=== PATIENT | female | born 1955 | race Hispanic/Latino ===

== ENCOUNTER 2018-04-28 13:15 | Inpatient (IN) | payer SELFPAY ==
[2018-04-28 14:15] LABS: Absolute Lymphocytes (CBC) 1.8 K/uL (0.7-4.9); Absolute Monocytes 0.9 K/uL (0.1-1.3); Absolute Neutrophil 7.1 K/uL (1.8-8.0); Basophils % 0.4 % (0-1.3); Eosinophils % 2.9 % (0-4.4); Hematocrit 42.6 % (36.0-45.0); Lymphocytes % 17.6 % (15.3-44.8); MPV 9.2 fL (7.6-11.3); Monocytes % 8.7 % (3.3-12.3); RBC Red Blood Cell Count 4.76 M/uL (3.86-4.86)
[2018-04-28 14:18] LABS: Protime INR 3.36
[2018-04-28 14:33] LABS: CKMB Creatine Kinase MB < 1.0 ng/mL (0.3-3.6); Creatine Phosphokinase 83 U/L (26-192); Lipase 111 U/L (73-393)
[2018-04-28] MEDS ORDERED: LEVALBUTEROL 1.25 MG/3 ML NEB ONE (14:43)
[2018-04-28] MEDS ORDERED: predniSONE 20 MG TAB ONE (14:44)
[2018-04-28] MEDS ORDERED: NA CHLORIDE 0.9% 1,000 ML ONE (14:44)
[2018-04-28 15:06] LABS: ALT/SGPT 23 U/L (12-78); AST/SGOT 24 U/L (15-37); Albumin 3.5 g/dL (3.4-5.0); Alkaline Phosphatase 138 U/L (45-117); BUN Blood Urea Nitrogen 10 mg/dL (7-18); Bicarbonate 27 mmol/L (21-32); Bilirubin Direct 0.2 mg/dL (0-0.2); Bilirubin Total 0.4 mg/dL (0.2-1.0); Glucose Level 173 mg/dL (74-106); Magnesium 1.9 mg/dL (1.8-2.4); NT PRO-BNP 1034 pg/mL (<125); Potassium 3.5 mmol/L (3.5-5.1); Sodium Level 142 mmol/L (136-145); Troponin (Emerg Dept Use Only) < 0.02 ng/mL (0.0-0.045)
--- NOTE | 2018-04-28 15:18 | RAD REPORT ---
EXAM DESCRIPTION: RAD - Chest Single View - 04/28/2018 2:46 pm CLINICAL HISTORY: Chest pain, shortness of breath COMPARISON: September 2013 TECHNIQUE: AP portable chest image was obtained 1423 hours . FINDINGS: No peripheral consolidation. Patient does have an increase in interstitial opacification a nd some scattered alveolar opacities present. Cardiomegaly is present increased slightly over compari son. Vasculature in the upper lobes increased slightly as well. No measurable pleural effusion and no pneumothorax. No acute bony abnormality seen. No acute aortic findings suspected. IMPRESSION: Heart, vasculature and lung markings have all increased over comparison. Findings sugges t failure/ volume overload. No focal consolidation to suspect bacterial pneumonia.
[2018-04-28 16:41] LABS: Urine Bacteria 20-50 /HPF (<20); Urine Culture Reflex Order REFLEXED; Urine RBC NONE SEEN /HPF (NONE SEEN)
[2018-04-28 16:43] LABS: Urine Blood TRACE (NEG); Urine Glucose NEGATIVE (NEG); Urine Protein NEGATIVE (NEG); Urine Specific Gravity 1.015 (1.005-1.030)
--- NOTE | 2018-04-28 16:52 | RAD REPORT ---
EXAM DESCRIPTION: CT - Chest For Pe Angio - 04/28/2018 4:30 pm CLINICAL HISTORY: Chest pain COMPARISON: None. TECHNIQUE: Dynamically enhanced axial 3 mm thick images of the chest were obtained during administra tion of <100> mL Isovue 370 IV contrast. Coronal and oblique reconstruction images were generated and reviewed. Exam utilizes a protocol for optimal evaluation of pulmonary arterial tree. Maximum intensity projections 3D imaging was utilized All CT scans are performed using dose optimization technique as appropriate and may include automated exposure control or mA/KV adjustment according to patient size. FINDINGS: A pulmonary embolus is not seen. A thoracic aortic aneurysm is not noted. A pleural effusion is not seen. A pericardial effusion is not seen. A lung consolidation is not present. The heart is enlarged IMPRESSION: Negative for a pulmonary embolism.
--- NOTE | 2018-04-28 17:23 | EKG ---
Test Date: 2018-04-28 Test Time: 13:27:06 County Demonstrator: RADHA MEASUREMENT RESULTS: Intervals: Rate: 145 ME: QRSD: 76 QT: 314 QTc: 487 Badger: P: ME: QRS: 50 T: 238 INTERPRETIVE STATEMENTS: Atrial fibrillation with rapid ventricular response with premature ventricular or aberrantly conducted complexes ST & T wave abnormality, consider inferior ischemia Abnormal ECG No previous ECG available for comparison Electronically Signed On 04-28-18 17:22:46 GRAPE CUTTER by Michael Mondragon
--- NOTE | 2018-04-28 17:32 | ER ---
Nurse's Notes [facility] Name: Andrew Ford Age: 62 yrs Sex: Female : 1955 Arrival Date: 04/28/2018 Time: 13:18 Bed 17 Private MD: Diagnosis: A-fib w/ RVR, chest pain, cough, congestion Presentation: 04/28 13:38 Presenting complaint: Nonprodctive cough, pain with cough, SOB, and substernal chest hb pain x 2 days. Transition of care: patient was not received from another setting of care. Onset of symptoms was April 27, 2018. Risk Assessment: Do you want to hurt yourself or someone else? Patient reports no desire to harm self or others. Care prior to arrival: None. 13:38 Method Of Arrival: Ambulatory hb 13:38 Acuity: GISSELLE 2 hb Triage Assessment: 13:45 General: Appears in no apparent distress. comfortable, obese, Behavior is calm, bp cooperative, appropriate for age. Pain: Complains of pain in chest. Historical: - Allergies: 13:40 No Known Allergies; hb - PMHx: 13:40 Hypertension; hb - PSHx: 13:40 Tubal ligation; hb - Immunization history:: Adult Immunizations up to date. - Social history:: Smoking status: Patient/guardian denies using tobacco. - Ebola Screening: : No symptoms or risks identified at this time. Screenin:00 Abuse screen: Denies threats or abuse. Denies injuries from another. Nutritional bp screening: No deficits noted. Tuberculosis screening: No symptoms or risk factors identified. Fall Risk None identified. Assessment: 14:00 General: Appears in no apparent distress. comfortable, obese, Behavior is cooperative, bp appropriate for age, anxious. Pain: Complains of pain in chest Pain does not radiate. Pain began 2-3 days ago. Neuro: Level of Consciousness is awake, alert, obeys commands, Oriented to person, place, time, situation, Appropriate for age. Cardiovascular: Rhythm is sinus tachycardia. Respiratory: Airway is patent Respiratory effort is even, unlabored, Respiratory pattern is regular, symmetrical. GI: No signs and/or symptoms were reported involving the gastrointestinal system. : No signs and/or symptoms were reported regarding the genitourinary system. EENT: No deficits noted. Derm: No deficits noted. Musculoskeletal: Circulation, motion, and sensation intact. Range of motion: intact in all extremities. 16:17 Reassessment: PT TO CT WITH PLATER APPRENTICE. bp 17:30 Reassessment: ADMIT MD AT B/S. bp 19:15 Reassessment: Patient appears in no apparent distress at this time. Patient and/or ed1 family updated on plan of care and expected duration. Pain level reassessed. Patient is alert, oriented x 3, equal unlabored respirations, skin warm/dry/pink. Pt informed of room assignment. Awaiting to call report to 4th floor. Respiratory: Airway is patent Respiratory effort is even, unlabored, Respiratory pattern is regular, symmetrical. 20:23 Reassessment: Patient appears in no apparent distress at this time. Patient and/or ed1 family updated on plan of care and expected duration. Pain level reassessed. Patient is alert, oriented x 3, equal unlabored respirations, skin warm/dry/pink. Awaiting admission packet. Vital Signs: 13:38 BP 125 / 88; Pulse 148; Resp 20; Temp 99.4(TE); Pulse Ox 100% on R/A; Pain 5/10; hb 14:48 BP 121 / 77; Pulse 122; Resp 21; Pulse Ox 94% ; bp 16:16 BP 137 / 84; Pulse 138; Resp 24; Pulse Ox 95% ; bp 17:00 BP 99 / 82; Pulse 135; Resp 27; Pulse Ox 92% ; bp 17:30 BP 123 / 75; Pulse 144; Resp 28; Pulse Ox 89% ; bp 18:53 BP 112 / 97; Pulse 126; Resp 25; Pulse Ox 93% ; bp 19:48 BP 124 / 57; Pulse 127; Resp 24; Temp 98.9(O); Pulse Ox 93% on 2 lpm NC; Pain 2/10; ed1 ED Course: 13:18 Patient arrived in ED. rg4 13:40 Triage completed. hb 13:40 Rodo Stafford MD is Attending Physician. kdr 13:40 Arm band placed on. hb 13:42 Juan Morocho, JERMAN is Primary Nurse. bp 13:59 Inserted saline lock: 18 gauge in right antecubital area, using aseptic technique. 5 Blood collected. 14:14 Initial lab(s) drawn, by sd, sent to lab. First set of blood cultures drawn by sd, mh5 Second set of blood cultures drawn by sd. 14:47 XRAY Chest (1 view) In Process Unspecified. EDMS 15:05 Lactate Sent. 5 15:05 Procalcitonin Sent. 5 15:06 Blood Culture Adult (2) Sent. 5 15:06 Basic Metabolic Panel Sent. 5 15:06 LFT's Sent. 5 15:06 Troponin (emerg Dept Use Only) Sent. 5 15:07 Patient has correct armband on for positive identification. Placed in gown. Bed in low mh5 position. Call light in reach. Side rails up X 1. Adult w/ patient. Warm blanket given. cafeteria monitor on. Pulse ox on. NIBP on. 16:[address] via wheelchair. em2 16:28 CT completed. Patient tolerated procedure well. Patient moved back from CT. em2 16:30 CT Chest For PE Angio In Process Unspecified. EDMS 17:26 Ciro Hair DO is Hospitalizing Provider. kdr 18:14 Flu Sent. 5 18:14 Repeat lab(s) drawn. sent to lab. 5 18:15 Flu and/or RSV swab sent to lab. 5 20:23 No provider procedures requiring assistance completed. Patient admitted, IV remains in ed1 place. intact, No redness/swelling at site. Oxygen administration via nasal cannula \T\ 2L/min. Administered Medications: 14:00 Drug: Xopenex (3) 1.25 mg Route: Inhalation; bp 14:00 Drug: predniSONE 60 mg Route: PO; bp 17:39 Follow up: Response: No adverse reaction bp 14:00 Drug: NS 0.9% 1000 ml Route: IV; Rate: 1 bolus; Site: right antecubital; bp 17:40 Drug: Lopressor 5 mg Route: IVP; Site: right antecubital; bp 17:45 Drug: Lopressor 5 mg Route: IVP; Site: right antecubital; bp 17:50 Drug: Lopressor 5 mg Route: IVP; Site: right antecubital; bp 18:54 Follow up: Response: No change in condition bp Outcome: 17:31 Decision to Hospitalize by Provider. kdr 20:31 Admitted to Tele accompanied by tech, family with patient, via wheelchair, room 421, ed1 with oxygen, with chart, Report called to JERMAN Mccormick 20:31 Condition: stable 20:31 Discharge instructions given to patient, family, Instructed on the need for admit, Demonstrated understanding of instructions. 20:32 Patient left the ED. ed1 Signatures: Dispatcher [employer] Rodo Sow MD MD [facility] Iesha Lemnos RN RN ed1 Medardo Robertson em2 Anabel Rivas RN RN Emily Camarena [facility] Brenda Parnell [facility] Juan Morocho RN RN bp Corrections: (The following items were deleted from the chart) 14:52 14:48 Pulse 122bpm; Resp 21bpm; Pulse Ox 94%; bp bp
--- NOTE | 2018-04-28 17:32 | EDPHYS ---
Physician Documentation [facility] Name: Andrew Ford Age: 62 yrs Sex: Female : 1955 Arrival Date: 04/28/2018 Time: 13:18 Bed 17 Private MD: ED Physician Rodo Stafford HPI: 04/28 13:49 This 62 yrs old Female presents to ER via Ambulatory with complaints of Chest kdr Pain, High Blood Pressure, Shortness Of Breath. 13:50 The patient has shortness of breath at rest, with light activity. Onset: The kdr symptoms/episode began/occurred gradually, 2 day(s) ago. Duration: The symptoms are continuous, and are steadily getting worse. The patient's shortness of breath is aggravated by coughing, light activity, walking, is alleviated by rest. Associated signs and symptoms: Pertinent positives: chest pain, non-productive cough, nausea, Pertinent negatives: fever, hemoptysis, loss of consciousness, visual changes, vomiting. Severity of symptoms: At their worst the symptoms were moderate in the emergency department the symptoms are worse mildly. The patient has not experienced similar symptoms in the past. The patient has not recently seen a physician. Historical: - Allergies: 13:40 No Known Allergies; hb - PMHx: 13:40 Hypertension; hb - PSHx: 13:40 Tubal ligation; hb - Immunization history:: Adult Immunizations up to date. - Social history:: Smoking status: Patient/guardian denies using tobacco. - Ebola Screening: : No symptoms or risks identified at this time. ROS: 13:50 Constitutional: Negative for fever, chills, and weight loss, Eyes: Negative for injury, kdr pain, redness, and discharge, ENT: Negative for injury, pain, and discharge, Neck: Negative for injury, pain, and swelling, Abdomen/GI: Negative for abdominal pain, nausea, vomiting, diarrhea, and constipation, Back: Negative for injury and pain, : Negative for injury, bleeding, discharge, and swelling, MS/Extremity: Negative for injury and deformity, Skin: Negative for injury, rash, and discoloration, Neuro: Negative for headache, weakness, numbness, tingling, and seizure activity. Psych: Negative for depression, anxiety, suicide ideation, homicidal ideation, and hallucinations, Allergy/Immunology: Negative for hives, rash, and allergies, Endocrine: Negative for neck swelling, polydipsia, polyuria, polyphagia, and marked weight changes, Hematologic/Lymphatic: Negative for swollen nodes, abnormal bleeding, and unusual bruising. 13:50 Cardiovascular: Positive for chest pain, with cough, palpitations, Negative for edema, orthopnea. 13:50 Respiratory: Positive for cough, with no reported sputum, dyspnea on exertion, shortness of breath, wheezing, Negative for hemoptysis, orthopnea, pleurisy. Exam: 13:50 Constitutional: This is a well developed, well nourished patient who is awake, alert, kdr and in no acute distress. Head/Face: Normocephalic, atraumatic. Eyes: Pupils equal round and reactive to light, extra-ocular motions intact. Lids and lashes normal. Conjunctiva and sclera are non-icteric and not injected. Cornea within normal limits. Periorbital areas with no swelling, redness, or edema. Neck: Trachea midline, no thyromegaly or masses palpated, and no cervical lymphadenopathy. Supple, full range of motion without nuchal rigidity, or vertebral point tenderness. No Meningismus. Chest/axilla: Normal chest wall appearance and motion. Nontender with no deformity. No lesions are appreciated. Cardiovascular: Regular rate and rhythm with a normal S1 and S2. No gallops, murmurs, or rubs. Normal PMI, no JVD. No pulse deficits. Abdomen/GI: Soft, non-tender, with normal bowel sounds. No distension or tympany. No guarding or rebound. No evidence of tenderness throughout. Back: No spinal tenderness. No costovertebral tenderness. Full range of motion. Skin: Warm, dry with normal turgor. Normal color with no rashes, no lesions, and no evidence of cellulitis. MS/ Extremity: Pulses equal, no cyanosis. Neurovascular intact. Full, normal range of motion. Neuro: Awake and alert, GCS 15, oriented to person, place, time, and situation. Cranial nerves II-XII grossly intact. Motor strength 5/5 in all extremities. Sensory grossly intact. Cerebellar exam normal. Normal gait. Psych: Awake, alert, with orientation to person, place and time. Behavior, mood, and affect are within normal limits. 13:50 Respiratory: moderate respiratory distress is noted, Respirations: labored breathing, that is mild, that is moderate, Breath sounds: decreased breath sounds, wheezing: that is mild, is scattered, is heard diffusely. Vital Signs: 13:38 BP 125 / 88; Pulse 148; Resp 20; Temp 99.4(TE); Pulse Ox 100% on R/A; Pain 5/10; hb 14:48 BP 121 / 77; Pulse 122; Resp 21; Pulse Ox 94% ; bp 16:16 BP 137 / 84; Pulse 138; Resp 24; Pulse Ox 95% ; bp 17:00 BP 99 / 82; Pulse 135; Resp 27; Pulse Ox 92% ; bp 17:30 BP 123 / 75; Pulse 144; Resp 28; Pulse Ox 89% ; bp 18:53 BP 112 / 97; Pulse 126; Resp 25; Pulse Ox 93% ; bp 19:48 BP 124 / 57; Pulse 127; Resp 24; Temp 98.9(O); Pulse Ox 93% on 2 lpm NC; Pain 2/10; ed1 MDM: 13:50 Data reviewed: vital signs, nurses notes, lab test result(s), radiologic studies. kdr Counseling: I had a detailed discussion with the patient and/or guardian regarding: the historical points, exam findings, and any diagnostic results supporting the discharge/admit diagnosis, lab results, radiology results, the need for further work-up and treatment in the hospital. 17:31 Patient medically screened. kdr 04/28 13:41 Order name: Basic Metabolic Panel; Complete Time: 16:02 kdr 04/28 13:41 Order name: CBC with Diff; Complete Time: 16:02 kdr 04/28 13:41 Order name: LFT's; Complete Time: 16:02 kdr 04/28 13:41 Order name: Magnesium; Complete Time: 16:02 kdr 04/28 13:41 Order name: NT PRO-BNP; Complete Time: 16:02 kdr 04/28 13:41 Order name: PT-INR; Complete Time: 16:02 kdr 04/28 13:41 Order name: Troponin (emerg Dept Use Only); Complete Time: 16:02 kdr 04/28 13:46 Order name: Blood Culture Adult (2) kdr 04/28 13:46 Order name: Ckmb; Complete Time: 16:02 kdr 04/28 13:46 Order name: CPK; Complete Time: 16:02 kdr 04/28 13:46 Order name: Lactate; Complete Time: 16:02 kdr 04/28 13:46 Order name: Lipase; Complete Time: 16:02 kdr 04/28 13:46 Order name: Procalcitonin; Complete Time: 16:02 kdr 04/28 13:46 Order name: Ptt, Activated; Complete Time: 16:02 kdr 04/28 13:41 Order name: XRAY Chest (1 view); Complete Time: 16:02 kdr 04/28 13:41 Order name: EKG; Complete Time: 13:42 kdr 04/28 13:41 Order name: Cardiac monitoring; Complete Time: 14:19 kdr 04/28 13:41 Order name: EKG - Nurse/Tech; Complete Time: 14:19 kdr 04/28 13:41 Order name: IV Saline Lock; Complete Time: 14:19 kdr 04/28 13:41 Order name: Labs collected and sent; Complete Time: 14:19 kdr 04/28 13:46 Order name: Urine Microscopic Only; Complete Time: 17:13 kdr 04/28 16:04 Order name: CT Chest For PE Angio; Complete Time: 17:13 kdr 04/28 16:19 Order name: Urine Dipstick--Ancillary (enter results); Complete Time: 17:13 bd 04/28 16:43 Order name: Urine Culture [facility] 04/28 17:51 Order name: Flu kdr 04/28 18:38 Order name: Lactate Sepsis 2 HR Follow-up [facility] 04/28 13:41 Order name: O2 Per Protocol; Complete Time: 14:19 kdr 04/28 13:41 Order name: O2 Sat Monitoring; Complete Time: 14:20 kdr 04/28 13:46 Order name: Accucheck; Complete Time: 14:20 kdr 04/28 13:46 Order name: IV Saline Lock - Large Bore; Complete Time: 14:20 kdr 04/28 13:46 Order name: Urine Dipstick-Ancillary (obtain specimen); Complete Time: 17:49 kdr Administered Medications: 14:00 Drug: Xopenex (3) 1.25 mg Route: Inhalation; bp 14:00 Drug: predniSONE 60 mg Route: PO; bp 17:39 Follow up: Response: No adverse reaction bp 14:00 Drug: NS 0.9% 1000 ml Route: IV; Rate: 1 bolus; Site: right antecubital; bp 17:40 Drug: Lopressor 5 mg Route: IVP; Site: right antecubital; bp 17:45 Drug: Lopressor 5 mg Route: IVP; Site: right antecubital; bp 17:50 Drug: Lopressor 5 mg Route: IVP; Site: right antecubital; bp 18:54 Follow up: Response: No change in condition bp Disposition: 04/28/18 17:31 Hospitalization ordered by Ciro Hair for Observation. Preliminary diagnosis is A-fib w/ RVR, chest pain, cough, congestion. - Bed requested for Telemetry/MedSurg (observation). - Status is Observation. ed1 - Condition is Fair. - Problem is new. - Symptoms have improved. UTI on Admission? No Signatures: Dispatcher [employer] EDMS Aleshia Grier Kevin, MD MD [facility] Iesha Lemons RN RN ed1 Anabel Rivas RN RN Juan Morocho RN RN bp Corrections: (The following items were deleted from the chart) 18:53 17:31 Hospitalization Ordered by Ciro Hair DO for Observation. Preliminary bd diagnosis is A-fib w/ RVR, chest pain, cough, congestion. Bed requested for Telemetry/MedSurg (observation). Status is Observation. Condition is Fair. Problem is new. Symptoms have improved. UTI on Admission? No. kdr 20:32 18:53 04/28/2018 17:31 Hospitalization Ordered by Ciro Hair DO for Observation. ed1 Preliminary diagnosis is A-fib w/ RVR, chest pain, cough, congestion. Bed requested for Telemetry/MedSurg (observation). Status is Observation. Condition is Fair. Problem is new. Symptoms have improved. UTI on Admission? No. bd
[2018-04-28] MEDS ORDERED: METOPROLOL TARTRATE 5 MG/5 ML INJ IV ONE (17:54)
--- NOTE | 2018-04-28 18:16 | P.HP ---
Certification for Inpatient Patient admitted to: Observation With expected LOS: <2 Midnights Patient will require the following post-hospital care: None Practitioner: I am a practitioner with admitting privileges, knowledge of patient current condition, hospital course, and medical plan of care. Services: Services provided to patient in accordance with Admission requirements found in Title 42 Section 412.3 of the Code of Federal Regulations Patient History Date of Service: 04/28/18 Primary Care Provider: [facility]([place], [place]) Reason for admission: Shortness of breath, cough History of Present Illness: 62-year-old female presented emergency room with increasing cough, congestion and shortness of breath. Patient reports over the past several days she has been having increasing cough , congestion and shortness of breath. Multiple sick contact members noted. She denies any fever, chills. Her symptoms did not improve. She came to the ER for further evaluation. In the ER patient found to be tachycardic with a heart rate of 140. EKG showed AFib with RVR. Patient with history of atrial fibrillation on chronic anti coagulation therapy-Coumadin, diabetes, hypertension, hyperlipidemia. White count 10.0, hemoglobin 14.7. Pro calcitonin negative. Sodium 142, potassium 3.5, BUN of 10, creatinine 1.09 with a GFR 51. Glucose 173. BNP 1034. Troponin unremarkable. Chest x-ray showed possible CHF. CT scan showed no pulmonary edema, pulmonary embolism or pneumonia. Patient was given Xopenex and steroid treatment in the ER. Patient was admitted for observation. When I saw the patient ER, she appeared comfortable. O2 saturations above 88% with some desaturations at times. Patient without any labored breathing. Patient does not appear septic. Some wheezing noted. Patient on Coumadin, metoprolol, lisinopril hydrochlorothiazide, and Lipitor. She has reported some edema to the lower extremities but this is chronic. She does not take her Lasix. No mention or history of CHF per patient. Influenza examination pending. Patient to get IV Lasix. Allergies No Known Allergies Allergy (Verified 05/15/13 14:24) Home medications list reviewed: Yes Home Medications: Lisinopril/Hydrochlorothiazide [Zestoretic 10-12.5 mg Tablet] 1 each PO DAILY # 30 tablet 05/19/13 Metoprolol Tartrate [Lopressor*] 50 mg PO BID #60 tab 05/19/13 Warfarin Sodium [Coumadin*] 5 mg PO DAILY 5 PM #7 tab 05/19/13 - Past Medical/Surgical History Diabetic: Yes -: HTN -: Diabetes mellitus type 2 -: Hyperlipidemia -: Atrial fibrillation on chronic anti coagulation therapy-Coumadin -: Hyperlipidemia -: Obesity -: Suspect obstructive sleep apnea -: Cholecystectomy -: Tubal ligation Psychosocial/ Personal History: Patient is a . She has 3 children. She lives with her daughter. - Family History Mother -: Heart disease - Social History Smoking Status: Never smoker Alcohol use: No CD- Drugs: No Caffeine use: Yes Place of Residence: Home Review of Systems General: As per HPI Eyes: Unremarkable ENT: Nose Congestion, As per HPI Respiratory: Cough, Shortness of Breath, SOB with Excertion, Sputum, Wheezing, As per HPI Cardiovascular: Edema, As per HPI Gastrointestinal: Unremarkable Genitourinary: Unremarkable Musculoskeletal: Pedal edema, As per HPI Integumentary: Unremarkable Neurological: Unremarkable Lymphatics: Unremarkable Physical Examination - Physical Exam General: Alert, In no apparent distress, Oriented x3, Cooperative HEENT: Atraumatic, Normocephalic, Other (Increased nasal congestion) Neck: Supple, No Thyromegaly Respiratory: Expiratory wheezes (Bilateral), Inspiratory wheezes (Bilateral) Cardiovascular: Irregular heart rate/rhythm (Atrial fibrillation rate slightly increased) Gastrointestinal: Normal bowel sounds, Soft and benign, Non-distended, No tenderness, No masses, No rebound, No guarding Musculoskeletal: No contractures, No erythema, No tenderness, No warmth Integumentary: No erythema, No warmth, No cyanosis, Tenderness/swelling (1+ pitting edema to the lower extremities bilateral) Neurological: Normal speech, Normal strength at 5/5 x4 extr, Normal tone, Normal affect - Studies Laboratory Data (last 24 hrs) 04/28/18 13:59: APTT 46.2 H 04/28/18 13:59: Lipase 111 04/28/18 13:59: PT 37.8 H, INR 3.36 04/28/18 13:59: WBC 10.0, Hgb 14.7, Hct 42.6, Plt Count 226 04/28/18 13:59: Sodium 142, Potassium 3.5, BUN 10, Creatinine 1.09, Glucose 173 H, Magnesium 1.9, Total Bilirubin 0.4, AST 24, ALT 23, Alkaline Phosphatase 138 H Assessment and Plan - Plan Impression: Cough, congestion and shortness of breath likely viral bronchitis complicated with possible underlying acute on chronic diastolic CHF Atrial fibrillation with RVR on chronic anti coagulation therapy-Coumadin Hypertension Diabetes mellitus type 2 Hyperlipidemia Obesity Suspect obstructive sleep apnea Plan: Cough, congestion and shortness of breath likely viral bronchitis complicated with possible underlying acute on chronic diastolic CHF: Patient will be admitted for observation. Suspect viral bronchitis. X-ray and CT scan shows no pulmonary embolism or pneumonia. Pro calcitonin negative. Will need to check influenza test. If positive will require Tamiflu. Will provide medication for cough and congestion. Continue oral steroid, Xopenex and Atrovent. Will add Brovana. Will maintain sats above 90%. Also suspect underlying CHF. Will check echocardiogram. Will provide Lasix IV 40 mg twice daily. Will place on a fluid restriction. Will monitor closely. Cardiology consulted for further evaluation. Recheck x-ray in the morning. Blood cultures obtained along with sputum culture. Anticipate discharge in the next 24-48 hr. Atrial fibrillation with RVR on chronic anti coagulation therapy-Coumadin: Rate elevated likely due to bronchitis and underlying CHF. Continue as above. Will restart metoprolol 50 mg 1 pill twice daily and Coumadin 5 mg daily. Will hold Coumadin if INR greater than 3.0. Cardiology consulted for further recommendation. Obtain echocardiogram. Hypertension: Restart metoprolol and lisinopril. Will monitor closely and adjust Diabetes mellitus type 2: Will check A1c. Will provide insulin sliding scale and Accu-Cheks. Hyperlipidemia: Continue with home medication Obesity: Will address lifestyle modification education. Suspect obstructive sleep apnea: Patient will need sleep study as an outpatient to further assess. Discharge Plan: Home Plan to discharge in: 24 Hours - Advance Directives Does patient have a Living Will: No Does patient have a Durable POA for Healthcare: No - Code Status/Comfort Care Code Status Assessed: Yes (Patient Full code.) Time Spent Managing Pts Care (In Minutes): 55
[2018-04-28] MEDS ORDERED: LEVALBUTEROL 0.63 MG/3 ML NEB NEB PRN (20:52)
[2018-04-28] MEDS: ARFORMOTEROL TARTRATE 15 MCG/2 ML VIAL.NEB NEB SCH (20:52)
[2018-04-28] MEDS ORDERED: ACETAMINOPHEN 500 MG TAB PO PRN ×2 (20:52→22:17)
[2018-04-28] MEDS ORDERED: ONDANSETRON 4 MG/2 ML VIAL IV PRN ×2 (20:52→22:22)
[2018-04-28] MEDS ORDERED: BENZONATATE 100 MG CAP PO PRN ×2 (20:52→22:32)
[2018-04-28] MEDS: FUROSEMIDE 40 MG/4 ML VIAL IV SCH (20:52)
[2018-04-28] MEDS ORDERED: IPRATROPIUM BROM 0.5MG/2.5ML NEB PRN (20:52)
[2018-04-28] MEDS: METOPROLOL TAR 50 MG TAB PO SCH (21:00)
[2018-04-28] MEDS ORDERED: INSULIN -REGULAR HUMAN 50 UNIT/0.5 ML ML SQ SCH (21:00)
[2018-04-28] MEDS: predniSONE 20 MG TAB PO SCH (21:00)
[2018-04-28] MEDS ORDERED: ATORVASTATIN 40 MG TAB PO SCH ×2 (21:00→23:00)
[2018-04-28] MEDS ORDERED: FUROSEMIDE 20 MG/ 2ML VIAL ONE (21:13)
[2018-04-28 21:38] VITALS: BMI 42.5
[2018-04-28] MEDS ORDERED: IPRATROPIUM BROM 0.5MG/2.5ML IH PRN ×2 (22:18→23:00)
[2018-04-28] MEDS ORDERED: ACETAMINOPHEN 500 MG TAB ONE (22:19)
[2018-04-28] MEDS ORDERED: ATORVASTATIN 40 MG TAB ONE (22:19)
[2018-04-28] MEDS: METOPROLOL TAR 50 MG TAB ONE ×2 (22:19)
[2018-04-28] MEDS ORDERED: ARFORMOTEROL TARTRATE 15 MCG/2 ML VIAL.NEB IH SCH (22:30)
[2018-04-28] MEDS ORDERED: D50W 25 GM/50 ML SYRINGE IV PRN (22:33)
[2018-04-28] MEDS ORDERED: GLUCAGON 1 MG/VIAL IM PRN (22:33)
[2018-04-28 22:35] LABS: CKMB Creatine Kinase MB 1.3 ng/mL (0.3-3.6); Creatine Phosphokinase 91 U/L (26-192); Thyroid Stimulating Hormone 0.747 uIU/mL (0.360-3.740); Troponin (Emerg Dept Use Only) < 0.02 ng/mL (0.0-0.045)
[2018-04-28] MEDS ORDERED: LEVALBUTEROL 0.63 MG/3 ML NEB IH PRN (22:35)
[2018-04-28] MEDS ORDERED: IPRATROPIUM BROM 0.5MG/2.5ML ONE (22:39)
[2018-04-28] MEDS ORDERED: ARFORMOTEROL TARTRATE 15 MCG/2 ML VIAL.NEB ONE (22:39)
[2018-04-28] MEDS ORDERED: METOPROLOL TAR 25 MG TAB PO ONE (22:46)
[2018-04-28 23:08] VITALS: O2SAT 92
[2018-04-29 06:16] LABS: Protime INR 2.79
[2018-04-29 06:17] LABS: Absolute Lymphocytes (CBC) 1.8 K/uL (0.7-4.9); Absolute Monocytes 0.7 K/uL (0.1-1.3); Absolute Neutrophil 5.7 K/uL (1.8-8.0); Basophils % 0.3 % (0-1.3); Eosinophils % 0.6 % (0-4.4); Hematocrit 39.5 % (36.0-45.0); Lymphocytes % 21.8 % (15.3-44.8); Monocytes % 8.7 % (3.3-12.3); RBC Red Blood Cell Count 4.34 M/uL (3.86-4.86)
[2018-04-29 06:34] LABS: BUN Blood Urea Nitrogen 12 mg/dL (7-18); Bicarbonate 28 mmol/L (21-32); CKMB Creatine Kinase MB 1.3 ng/mL (0.3-3.6); Creatine Phosphokinase 83 U/L (26-192); Glucose Level 124 mg/dL (74-106); HDL Cholesterol 64 mg/dL (40-60); LDL Cholesterol, Calculated 75 (<130); Magnesium 2.1 mg/dL (1.8-2.4); Potassium 3.9 mmol/L (3.5-5.1); Sodium Level 143 mmol/L (136-145); Troponin I < 0.02 ng/mL (0.0-0.045)
[2018-04-29] MEDS: INSULIN -REGULAR HUMAN 50 UNIT/0.5 ML ML SQ SCH ×3 (07:30→16:30)
--- NOTE | 2018-04-29 08:19 | CON ---
Reason For Consult: She came to the hospital because of dyspnea. History Of Present Illness: Mrs. Henry apparently has had atrial fibrillation since 2013. [facility] She takes warfarin, and gets checkups every 6 months. Edson sky also has a history of dyslipidemia, hypertension, and diabetes. She is overweight. She has never had myocardial infarction, stroke, or any vascular intervention. Social History: She uses no tobacco. Occasional alcohol. No illegal drugs. Allergies: NO ALLERGIES ARE KNOWN. Physical Examination: Vital Signs: 5 feet 4 inches, 248 pounds, blood pressure 102/68, temperature 98.2. HEENT: Normal. Lungs: Wheezes throughout, inspiratory and expiratory. Heart: Irregularly irregular, about 90 beats per minute. Abdomen: Soft. Extremities: Trace edema. Distal pulses are palpable and within normal limits. Imaging: A CT angio of the chest is negative for pulmonary embolus. An electrocardiogram reveals at rial fib, heart rate 145, and a chest x-ray showed volume overload. No evidence of pneumonia. Laboratory Data: Reveals normal troponins, normal white blood cell count, normal hemoglobin and riki tocrit. Her INR this morning was 2.79. Her blood pressure and heart rate seem to be well controlled . Impression: The patient has chronic atrial fibrillation with rate control at least at present, and g ood anticoagulation. I would not change any of that therapy. I think she needs therapy for her volu me overload. We will do an echocardiogram, and give her diuresis. I think she also needs some breathing treatment. It really sounds like she might have chronic obstruct jaylen pulmonary disease or asthma. EDSON/CHARMAINE Voice ID: [id number] Report ID: [id number]
--- NOTE | 2018-04-29 08:26 | RAD REPORT ---
EXAM DESCRIPTION: RAD - Chest Pa And Lat (2 Views) - 04/29/2018 7:03 am CLINICAL HISTORY: Follow up bronchitis/CHF Chest pain. COMPARISON: Chest Single View dated 04/28/2018; CHEST SINGLE VIEW dated 09/22/2013; CHEST SINGLE VIEW da hollis 05/18/2013; CHEST SINGLE VIEW dated 05/15/2013; Chest For Pe Angio dated 04/28/2018 FINDINGS: Mild linear opacities in both lung bases noted, unchanged. The heart is mildly enlarged in size. No displaced fractures. Aortic atherosclerosis. IMPRESSION: Stable chest since 04/28/2018.
[2018-04-29] MEDS: ARFORMOTEROL TARTRATE 15 MCG/2 ML VIAL.NEB NEB SCH (08:29)
[2018-04-29 08:44] VITALS: BP 115/67
[2018-04-29] MEDS: predniSONE 20 MG TAB PO SCH (08:51)
[2018-04-29] MEDS: METOPROLOL TAR 50 MG TAB PO SCH (08:52)
[2018-04-29] MEDS: FUROSEMIDE 40 MG/4 ML VIAL IV SCH ×2 (08:53→16:42)
[2018-04-29] MEDS ORDERED: POTASSIUM CL SA 10 MEQ TAB PO ONE (09:00)
[2018-04-29] MEDS ORDERED: predniSONE 20 MG TAB PO SCH (09:00)
[2018-04-29] MEDS ORDERED: LISINOPRIL 20 MG TAB PO SCH ×2 (09:00)
[2018-04-29] MEDS ORDERED: FAMOTIDINE 20 MG TAB PO SCH ×2 (09:00)
[2018-04-29] MEDS ORDERED: FUROSEMIDE 40 MG/4 ML VIAL IV SCH (09:00)
[2018-04-29] MEDS ORDERED: METOPROLOL TAR 50 MG TAB PO SCH (09:00)
--- NOTE | 2018-04-29 12:09 | P.PN ---
Subjective Date of Service: 04/29/18 Primary Care Provider: [facility]([place], [place]) Chief Complaint: Shortness of breath, cough Subjective: Improving Physical Examination - Vital Signs Temperature: 97.4 F Blood Pressure: 115/67 Pulse: 89 Respirations: 18 Pulse Ox (%): 94 - Physical Exam General: Alert, In no apparent distress, Oriented x3, Cooperative HEENT: Atraumatic Neck: Supple Respiratory: Expiratory wheezes (Less wheezing bilateral) Cardiovascular: Irregular heart rate/rhythm (Atrial fibrillation, rate controlled) Gastrointestinal: Normal bowel sounds, Soft and benign, Non-distended, No tenderness, No masses, No rebound, No guarding Musculoskeletal: No erythema, No tenderness, No warmth Integumentary: No erythema, No warmth, No cyanosis, Tenderness/swelling (Edema to the lower extremities improved) Neurological: Normal speech, Normal strength at 5/5 x4 extr, Normal tone, Normal affect - Studies Laboratory Data (last 24 hrs) 04/28/18 13:59: APTT 46.2 H 04/28/18 13:59: Lipase 111 04/28/18 13:59: PT 37.8 H, INR 3.36 04/28/18 13:59: WBC 10.0, Hgb 14.7, Hct 42.6, Plt Count 226 04/28/18 13:59: Sodium 142, Potassium 3.5, BUN 10, Creatinine 1.09, Glucose 173 H, Magnesium 1.9, Total Bilirubin 0.4, AST 24, ALT 23, Alkaline Phosphatase 138 H Medications List Reviewed: Yes Assessment & Plan Discharge Plan: Home Plan to discharge in: 24 Hours Physician Review Additional Text: Impression: Cough, congestion and shortness of breath likely viral bronchitis complicated with possible underlying acute on chronic diastolic CHF Atrial fibrillation with RVR on chronic anti coagulation therapy-Coumadin Hypertension Diabetes mellitus type 2 Hyperlipidemia Obesity Suspect obstructive sleep apnea Plan: Cough, congestion and shortness of breath likely viral bronchitis complicated with possible underlying acute on chronic diastolic CHF: Patient continues to improve. Patient still requiring oxygen. Patient is uninsured. Will need to check with social science research assistant to see if home oxygen can be arranged. If not patient will need to be diuresed and continue therapy until she can be safely off oxygen. Continue oral steroid, Xopenex, Brovana and Atrovent. Will check echocardiogram. Will continue with IV Lasix 40 mg b.i.d. Will continue with fluid restriction. Cardiology consulted, will discuss with him later. Atrial fibrillation with RVR on chronic anti coagulation therapy-Coumadin: Will rate better controlled with restart of home medication-metoprolol 50 mg 1 pill twice daily and Coumadin 5 mg daily. Will hold Coumadin if INR greater than 3.0. Cardiology consulted for further recommendation. Obtain echocardiogram. Hypertension: Continue with home medication-metoprolol and lisinopril. Will monitor closely and adjust Diabetes mellitus type 2: Will provide insulin sliding scale and Accu-Cheks. Hyperlipidemia: Continue with home medication Obesity: Will address lifestyle modification education. Suspect obstructive sleep apnea: Patient will need sleep study as an outpatient to further assess. Time Spent Managing Pts Care (In Minutes): 55
--- NOTE | 2018-04-29 14:19 | ECHO ---
HEIGHT: 5 ft 4 in WEIGHT: 248 lb 0 oz DATE OF STUDY: 04/29/[address]: Ciro Hair DO 2-DIMENSIONAL: YES M.MODE: YES DOPPLER: YES COLOR FLOW: YES TDS: PORTABLE: DEFINITY: BUBBLE STUDY: DIAGNOSIS: SHORTNESS OF BREATH CARDIAC HISTORY: CATHERIZATION: NO SURGERY: NO PROSTHETIC VALVE: NO PACEMAKER: NO MEASUREMENTS (cm) DIASTOLIC (NORMALS) SYSTOLIC (NORMALS) IVSd 1.0 (0.6-1.2) LA Diam (1.9-4.0) LVEF 74% LVIDd 3.6 (3.5-5.7) LVIDs 2.1 (2.0-3.5) %FS 42% LVPWd 1.1 (0.6-1.2) Ao Diam 2.2 (2.0-3.7) 2 DIMENSIONAL ASSESSMENT: RIGHT ATRIUM: NORMAL LEFT ATRIUM: DILATED RIGHT VENTRICLE: NORMAL LEFT VENTRICLE: NORMAL TRICUSPID VALVE: NORMAL MITRAL VALVE: NORMAL PULMONIC VALVE: NORMAL AORTIC VALVE: NORMAL PERICARDIAL EFFUSION: NONE AORTIC ROOT: NORMAL LEFT VENTRICULAR WALL MOTION: NORMAL DOPPLER/COLOR FLOW: MILD MITRAL REGURGITATION AND TRICUSPID REGURGITATION. NORMAL RIGHT VENTRICULAR SYSTOLIC PRESSURE. COMMENTS: NORMAL LEFT VENTRICULAR EJECTION FRACTION. DILATED LEFT ATRIUM. MILD MITRAL AND TRICUSPID REGURGITATION. TECHNOLOGIST: SHAMA ROSAS
[2018-04-29] MEDS ORDERED: INFLUENZA VACCINE (for 3y+) 0.5 ML DOSE IMVAC ONE (16:00)
[2018-04-29] MEDS ORDERED: PNEUMOCOCCAL VACCINE 0.5 ML IMVAC ONE (16:00)
--- NOTE | 2018-04-29 16:11 | P.DS ---
Admission Date: 04/29/18 Discharge Date: 04/29/18 Primary Care Provider: [facility]([place], [place]) Disposition: ROUTINE DISCHARGE Discharge Condition: GOOD Reason for Admission: Shortness of breath, cough Consultations: Cardiology-Dr. Mondragon Procedures: ECHO: EF 42% LEFT VENTRICULAR WALL MOTION: NORMAL DOPPLER/COLOR FLOW: MILD MITRAL REGURGITATION AND TRICUSPID REGURGITATION. NORMAL RIGHT VENTRICULAR SYSTOLIC PRESSURE. COMMENTS: NORMAL LEFT VENTRICULAR EJECTION FRACTION. DILATED LEFT ATRIUM. MILD MITRAL AND TRICUSPID REGURGITATION. CT scan: FINDINGS: A pulmonary embolus is not seen. A thoracic aortic aneurysm is not noted. A pleural effusion is not seen. A pericardial effusion is not seen. A lung consolidation is not present. The heart is enlarged IMPRESSION: Negative for a pulmonary embolism. Medical problem list: Cough, congestion and shortness of breath likely viral bronchitis complicated with possible underlying acute on chronic diastolic CHF Atrial fibrillation with RVR on chronic anti coagulation therapy-Coumadin Hypertension Diabetes mellitus type 2 Hyperlipidemia Obesity Suspect obstructive sleep apnea Brief History of Present Illness: 62-year-old female presented emergency room with increasing cough, congestion and shortness of breath. Patient reports over the past several days she has been having increasing cough , congestion and shortness of breath. Multiple sick contact members noted. She denies any fever, chills. Her symptoms did not improve. She came to the ER for further evaluation. In the ER patient found to be tachycardic with a heart rate of 140. EKG showed AFib with RVR. Patient with history of atrial fibrillation on chronic anti coagulation therapy-Coumadin, diabetes, hypertension, hyperlipidemia. White count 10.0, hemoglobin 14.7. Pro calcitonin negative. Sodium 142, potassium 3.5, BUN of 10, creatinine 1.09 with a GFR 51. Glucose 173. BNP 1034. Troponin unremarkable. Chest x-ray showed possible CHF. CT scan showed no pulmonary edema, pulmonary embolism or pneumonia. Patient was given Xopenex and steroid treatment in the ER. Patient was admitted for observation. When I saw the patient ER, she appeared comfortable. O2 saturations above 88% with some desaturations at times. Patient without any labored breathing. Patient does not appear septic. Some wheezing noted. Patient on Coumadin, metoprolol, lisinopril hydrochlorothiazide, and Lipitor. She has reported some edema to the lower extremities but this is chronic. She does not take her Lasix. No mention or history of CHF per patient. Influenza examination pending. Patient to get IV Lasix. Hospital Course: Patient presented with cough, congestion and shortness of breath. Patient likely had viral bronchitis with underlying acute on chronic diastolic CHF. Patient responded well to therapy. Patient given oral steroid with breathing treatment. Patient may have underlying asthma. Recommend for patient to follow up with pulmonology for pulmonary function test to further evaluate. At discharge patient will continue with prednisone 20 mg 1 pill twice daily for 5 days then 1 pill once daily for 5 days. For her CHF, The patient will also continue with Lasix 40 mg 1 pill twice daily. She will continue with a 1500 cc per day fluid restriction and low-salt diet. Patient is to monitor her weight daily. If her weight increases by more than 5 lb she is to contact her PCP or cardiology for further recommendation. Over time diuretic medication may need to be decreased. This can be done with the help of her PCP. Prior to discharge patient was evaluated for need for home oxygen. Patient required home oxygen at discharge. She is to maintain sats above 90%. Further adjustment can be done by her PCP. Patient to follow up with cardiology in 2-4 weeks to monitor her progress. Recommend to recheck BMP in 1-2 weeks to monitor progress peer Patient with atrial fibrillation on chronic anti coagulation therapy. At discharge she will continue with her medication metoprolol 50 mg 1 pill twice daily and Coumadin 5 mg daily. Coumadin is to be monitored closely. INR to be between 2 and 3. Further monitoring and adjustment can be done by her PCP or cardiology. Patient with hypertension. Medications adjusted during her stay. Lisinopril/ hydrochlorothiazide discontinued. At discharge, Patient will continue with metoprolol 50 mg 1 pill twice daily and lisinopril 20 mg 1 pill daily. Recommend to maintain blood pressures less 150/80. Further adjustment can be done by her PCP. Patient with diabetes mellitus type 2. A1c well controlled. Patient will continue with her medication-metformin 500 mg 1 pill twice daily. Recommendation is to maintain blood sugars less 140 fasting and less than 200 after meals. Further adjustment can be done by her PCP. Recommend to recheck lab-BMP in 1-2 weeks to monitor her progress. Patient with hyperlipidemia. Patient will continue with her medication-Lipitor 40 mg daily. Patient with obesity, BMI 42.6. Lifestyle modification education will be provided. Patient likely with underlying obstructive sleep apnea. Recommendation is for the patient to follow up with pulmonology as an outpatient to further evaluate. Patient will need sleep study to further address. Vital Signs/Physical Exam: Temp Pulse Resp BP Pulse Ox 97.4 F 89 18 115/67 94 04/29/18 12:09 04/29/18 12:09 04/29/18 12:09 04/29/18 12:09 04/29/18 12:09 General: Alert, In no apparent distress, Oriented x3, Cooperative HEENT: Atraumatic Neck: Supple Respiratory: Crackles/rales (Mild crackles but improved aeration) Cardiovascular: Irregular heart rate/rhythm (Atrial fibrillation rate controlled ) Gastrointestinal: Normal bowel sounds, No tenderness, No masses, No rebound, No guarding Musculoskeletal: No erythema, No tenderness, No warmth Integumentary: No erythema, No warmth, No cyanosis, Tenderness/swelling (Edema to the lower extremities improved) Neurological: Normal speech, Normal strength at 5/5 x4 extr, Normal tone, Normal affect Laboratory Data at Discharge: WBC 8.3 K/uL (4.3-10.9) D 04/29/18 05:49 Hgb 13.2 g/dL (12.0-15.0) 04/29/18 05:49 Hct 39.5 % (36.0-45.0) 04/29/18 05:49 Plt Count 208 K/uL (152-406) 04/29/18 05:49 PT 31.6 SECONDS (9.5-12.5) H 04/29/18 05:49 INR 2.79 04/29/18 05:49 APTT 46.2 SECONDS (24.3-36.9) H 04/28/18 13:59 Sodium 143 mmol/L (136-145) 04/29/18 05:49 Potassium 3.9 mmol/L (3.5-5.1) 04/29/18 05:49 BUN 12 mg/dL (7-18) 04/29/18 05:49 Creatinine 1.04 mg/dL (0.55-1.3) 04/29/18 05:49 Glucose 124 mg/dL (74-106) H 04/29/18 05:49 Magnesium 2.1 mg/dL (1.8-2.4) 04/29/18 05:49 Total Bilirubin 0.4 mg/dL (0.2-1.0) 04/28/18 13:59 AST 24 U/L (15-37) 04/28/18 13:59 ALT 23 U/L (12-78) 04/28/18 13:59 Alkaline Phosphatase 138 U/L (45-117) H 04/28/18 13:59 Troponin I < 0.02 ng/mL (0.0-0.045) 04/29/18 05:49 Triglycerides 70 mg/dL (<150) 04/29/18 05:49 Cholesterol 153 mg/dL (<200) 04/29/18 05:49 HDL Cholesterol 64 mg/dL (40-60) H 04/29/18 05:49 Cholesterol/HDL Ratio 2.39 04/29/18 05:49 Lipase 111 U/L (73-393) 04/28/18 13:59 Home Medications: Metoprolol Tartrate [Lopressor*] 50 mg PO BID #60 tab 05/19/13 Warfarin Sodium [Coumadin*] 5 mg PO DAILY 5 PM #7 tab 05/19/13 Atorvastatin Calcium [Lipitor] 40 mg PO BEDTIME 04/28/18 Metformin ER [Glucophage ER*] 500 mg PO BID 04/28/18 Furosemide [Lasix] 40 mg PO BIDL #60 tab 04/29/18 Lisinopril [Prinivil*] 20 mg PO DAILY #30 tab 04/29/18 predniSONE [Prednisone*] 20 mg PO SEECOM #15 tab 04/29/18 New Medications: Furosemide [Lasix] 40 mg PO BIDL #60 tab Lisinopril [Prinivil*] 20 mg PO DAILY #30 tab predniSONE [Prednisone*] 20 mg PO SEECOM #15 tab Patient Discharge Instructions: 1. Recommend a follow up with her PCP in 1 week to follow up this hospitalization. 2. Patient presented with cough, congestion and shortness of breath. Patient likely had viral bronchitis with underlying acute on chronic diastolic CHF. Patient responded well to therapy. Patient given oral steroid with breathing treatment. Patient may have underlying asthma. Recommend for patient to follow up with pulmonology for pulmonary function test to further evaluate. At discharge patient will continue with prednisone 20 mg 1 pill twice daily for 5 days then 1 pill once daily for 5 days. For her CHF, The patient will also continue with Lasix 40 mg 1 pill twice daily. She will continue with a 1500 cc per day fluid restriction and low-salt diet. Patient is to monitor her weight daily. If her weight increases by more than 5 lb she is to contact her PCP or cardiology for further recommendation. Over time diuretic medication may need to be decreased. This can be done with the help of her PCP. Prior to discharge patient was evaluated for need for home oxygen. Patient required home oxygen at discharge. She is to maintain sats above 90%. Further adjustment can be done by her PCP. Patient to follow up with cardiology in 2-4 weeks to monitor her progress. Recommend to recheck BMP in 1-2 weeks to monitor progress peer. 3. Patient with atrial fibrillation on chronic anti coagulation therapy. At discharge she will continue with her medication metoprolol 50 mg 1 pill twice daily and Coumadin 5 mg daily. Coumadin is to be monitored closely. INR to be between 2 and 3. Further monitoring and adjustment can be done by her PCP or cardiology. 4. Patient with hypertension. Medications adjusted during her stay. Lisinopril/ hydrochlorothiazide discontinued. At discharge, Patient will continue with metoprolol 50 mg 1 pill twice daily and lisinopril 20 mg 1 pill daily. Recommend to maintain blood pressures less 150/80. Further adjustment can be done by her PCP. 5. Patient with diabetes mellitus type 2. A1c well controlled. Patient will continue with her medication-metformin 500 mg 1 pill twice daily. Recommendation is to maintain blood sugars less 140 fasting and less than 200 after meals. Further adjustment can be done by her PCP. Recommend to recheck lab-BMP in 1-2 weeks to monitor her progress. 6. Patient with hyperlipidemia. Patient will continue with her medication-Lipitor 40 mg daily. 7. Patient with obesity, BMI 42.6. Lifestyle modification education will be provided. 8. Patient likely with underlying obstructive sleep apnea. Recommendation is for the patient to follow up with pulmonology as an outpatient to further evaluate. Patient will need sleep study to further address. Diet: ADA Activity: Fall precautions Time spent managing pt's care (in minutes): 55
[2018-04-29 16:48] VITALS: TEMP 97.6
[2018-04-29] MEDS ORDERED: WARFARIN SODIUM 5 MG TAB PO SCH (17:00)
== END 2018-04-29 19:00 | disposition home or self-care (01) | DRG 202 ==
LOC: ER 13:15 → ERHOLD 17:55 → 4TH 20:22 → OBSVTOIN 04-29 15:58
PROVIDERS: ADMIT Family Medicine; ATTEND Family Medicine
DX: J20.8 Acute bronchitis due to other specified organisms (principal); I50.33 Acute on chronic diastolic (congestive) heart failure; Z68.41 Body mass index [BMI] 40.0-44.9, adult; I11.0 Hypertensive heart disease with heart failure; I48.2 Chronic atrial fibrillation; Z79.01 Long term (current) use of anticoagulants; E11.9 Type 2 diabetes mellitus without complications; E78.5 Hyperlipidemia, unspecified; G47.33 Obstructive sleep apnea (adult) (pediatric); E66.9 Obesity, unspecified; Z79.84 Long term (current) use of oral hypoglycemic drugs
CPT/HCPCS: 36415; 71045; 71046; 71275; 80048; 80061; 80076; 81003; 81015; 82550; 82553; 82962; 83036; 83605; 83690; 83735; 83880; 84145; 84439; 84443; 84484; 85025; 85610; 85730; 87040; 87086; 87088; 87804; 90670; 93005; 93306; 94640; 96374; 99285; G0008; G0009; G0378; J1940; J7030; J7512; J7605; Q2035; Q9967

== ENCOUNTER 2018-05-27 18:45 | Emergency (ER) | payer SELFPAY ==
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
[2018-05-27] MEDS ORDERED: TRAMADOL HCL 50 MG TAB ONE (22:13)
[2018-05-27 22:40] VITALS: BP 128/71; TEMP 98.1; O2SAT 99
--- NOTE | 2018-05-31 11:30 | EKG ---
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
== END 2018-05-27 22:07 | disposition home or self-care (01) ==
LOC: ER 18:45
DX: S16.1XXA Strain of muscle, fascia and tendon at neck level, initial encounter (principal); S20.219A Contusion of unspecified front wall of thorax, initial encounter; V49.50XA Passenger injured in collision with unspecified motor vehicles in traffic accident, initial encounter; I10 Essential (primary) hypertension; E11.9 Type 2 diabetes mellitus without complications; E78.5 Hyperlipidemia, unspecified; I48.91 Unspecified atrial fibrillation
CPT/HCPCS: 71250; 72125; 93005; 99285

== ENCOUNTER 2021-07-20 15:21 | Emergency (ER) | payer MEDICARE, OTHER ==
[2021-07-20 16:01] LABS: Absolute Lymphocytes (CBC) 1.5 K/uL (0.7-4.9); Lymphocytes % 21.2 % (15.3-44.8); MPV 7.8 fL (7.6-11.3); RBC Red Blood Cell Count 4.56 M/uL (3.86-4.86)
[2021-07-20 16:31] LABS: Albumin 3.1 g/dL (3.4-5.0); Bilirubin Direct 0.2 mg/dL (0-0.2); Bilirubin Total 0.5 mg/dL (0.2-1.0); Magnesium 1.8 mg/dL (1.8-2.4); Potassium 4.1 mmol/L (3.5-5.1); Protein, Total 7.3 g/dL (6.4-8.2); Troponin High Sensitivity 8.4 pg/mL (<58.9)
--- NOTE | 2021-07-20 16:41 | RAD REPORT ---
EXAM DESCRIPTION: RAD - Chest Pa And Lat (2 Views) - 07/20/2021 4:35 pm CLINICAL HISTORY: COUGH Chest pain. COMPARISON: Chest Pa And Lat (2 Views) dated 04/29/2018; Chest Single View dated 04/28/2018; CHEST SINGL E VIEW dated 09/22/2013; CHEST SINGLE VIEW dated 05/18/2013 FINDINGS: Mild pulmonary edema is seen. The heart is moderately enlarged in size. No displaced fract ures. Small hiatal hernia. IMPRESSION: Mild CHF versus volume overload.
[2021-07-20] MEDS ORDERED: FUROSEMIDE 20 MG/ 2ML VIAL ONE (18:01)
--- NOTE | 2021-07-20 18:57 | EDPHYS ---
Physician Documentation [facility] Name: Andrew Ford Age: 65 yrs Sex: Female : 1955 Arrival Date: 07/20/2021 Time: 15:25 Bed 10 Private MD: Billy Capps ED Physician Rodo Stafford HPI: 07/20 16:00 This 65 yrs old Female presents to ER via Ambulatory with complaints of Cough. cp 16:00 The patient or guardian reports cough, with productive sputum. cp 16:00 Onset: The symptoms/episode began/occurred 5 week(s) ago. Severity of symptoms: in the emergency department the symptoms are unchanged, despite home interventions. Associated signs and symptoms: Pertinent positives: dyspnea, Pertinent negatives: chest pain, fever, vomiting, chills, sweats. Historical: - Allergies: 15:37 No Known Allergies; ld1 - PMHx: 15:37 Atrial Fib; CHF; Diabetes - NIDDM; Hyperlipidemia; Hypertension; ld1 - PSHx: 15:37 Total abdominal hysterectomy; ld1 - Immunization history:: Adult Immunizations up to date, Client reports receiving the 2nd dose of the Covid vaccine. - Social history:: Smoking status: Patient denies any tobacco usage or history of. Patient/guardian denies using alcohol. ROS: 16:05 Constitutional: Negative for body aches, chills, fever, poor PO intake. cp 16:05 Eyes: Negative for injury, pain, redness, and discharge. cp 16:05 ENT: Negative for drainage from ear(s), ear pain, sore throat, difficulty swallowing, difficulty handling secretions. 16:05 Cardiovascular: Positive for edema, Negative for chest pain, palpitations. 16:05 Respiratory: Positive for cough, orthopnea, Negative for wheezing. 16:05 Abdomen/GI: Negative for abdominal pain, nausea, vomiting, and diarrhea. 16:05 Back: Negative for pain at rest, pain with movement. 16:05 Skin: Negative for cellulitis, rash. 16:05 Neuro: Negative for altered mental status, dizziness, headache, syncope, weakness. 16:05 All other systems are negative. Exam: 16:10 Constitutional: The patient appears in no acute distress, alert, awake, cp non-diaphoretic, non-toxic, well developed, well nourished. 16:10 Head/Face: Normocephalic, atraumatic. cp 16:10 Eyes: Periorbital structures: appear normal, Conjunctiva: normal, no exudate, no injection, Sclera: no appreciated abnormality, Lids and lashes: appear normal, bilaterally. 16:10 ENT: External ear(s): are unremarkable, Nose: is normal, Mouth: Lips: moist, Oral mucosa: pink and intact, moist, Posterior pharynx: Airway: no evidence of obstruction, patent, Tonsils: are normal in appearance, swelling, is not appreciated, erythema, is not appreciated, exudate, is not appreciated. 16:10 Neck: ROM/movement: is normal, is supple, without pain, no range of motions limitations. 16:10 Chest/axilla: Inspection: normal, Palpation: is normal, no crepitus, no tenderness. 16:10 Cardiovascular: Rate: normal, Rhythm: irregular, Edema: ankle edema, that is moderate, JVD: is not appreciated. 16:10 Respiratory: the patient does not display signs of respiratory distress, Respirations: normal, no use of accessory muscles, no retractions, labored breathing, is not present, Breath sounds: bronchial sounds, that are mild, are heard diffusely. 16:10 Abdomen/GI: Exam negative for discomfort, distension, guarding, Inspection: abdomen appears normal. 16:10 Back: pain, is absent, ROM is normal. 16:10 Skin: cellulitis, is not appreciated, no rash present. 16:10 Neuro: Orientation: to person, place \T\ time. Mentation: is normal, Motor: moves all fours, strength is normal, Sensation: is normal, Gait: is steady, at a normal pace, without difficulty. 16:17 ECG was reviewed by the Attending Physician. cp Vital Signs: 15:38 BP 161 / 93; Pulse 99; Resp 18; Temp 98.8(TE); Pulse Ox 95% on R/A; Weight 113.4 kg; ld1 Height 5 ft. 0 in. (152.40 cm); Pain 0/10; 15:38 Body Mass Index 48.83 (113.40 kg, 152.40 cm) ld1 MDM: 15:42 Patient medically screened. cp 18:55 Data reviewed: vital signs, nurses notes, lab test result(s), EKG, radiologic studies, cp plain films. 18:55 Test interpretation: by ED physician or midlevel provider: ECG, plain radiologic cp studies. Counseling: I had a detailed discussion with the patient and/or guardian regarding: the historical points, exam findings, and any diagnostic results supporting the discharge/admit diagnosis, lab results, radiology results, the need for outpatient follow up, a family practitioner, to return to the emergency department if symptoms worsen or persist or if there are any questions or concerns that arise at home. ED course: VSS. Discussed results of labs, EKG and chest xray. Patient admits to not taking prescribed diuretic. Patient instructed to resume diuretic use at bid for next 5 days, then take as prescribed and to f/u with prescribing physician. Patient not hypoxic at rest or when ambulating. Will discharge to home for continued monitoring. 07/20 15:42 Order name: Basic Metabolic Panel; Complete Time: 17:30 07/20 17:30 Interpretation: Normal except: GLUC 143; GFR 61. 07/20 15:42 Order name: CBC with Diff; Complete Time: 17:30 cp 07/20 17:31 Interpretation: EOSINOPHIL % 6.2. cp 07/20 15:42 Order name: LFT's; Complete Time: 17:30 cp 07/20 15:42 Order name: Magnesium; Complete Time: 17:30 cp 07/20 15:42 Order name: NT PRO-BNP; Complete Time: 17:30 cp 07/20 15:42 Order name: Troponin HS; Complete Time: 17:30 cp 07/20 15:42 Order name: XRAY Chest Pa And Lat (2 Views); Complete Time: 17:30 cp 07/20 15:42 Order name: EKG; Complete Time: 15:43 cp 07/20 15:42 Order name: EKG - Nurse/Tech; Complete Time: 16:17 cp 07/20 15:42 Order name: IV Saline Lock; Complete Time: 16:01 cp 07/20 15:42 Order name: Labs collected and sent; Complete Time: 16: cp 07/20 15:42 Order name: O2 Per Protocol; Complete Time: 16: 07/20 15:42 Order name: O2 Sat Monitoring; Complete Time: 16: cp EC:17 Rate is 90 beats/min. Rhythm is irregular. QRS interval is normal. QT interval is cp normal. T waves are Inverted in leads aVR, V2. Interpreted by me. Reviewed by me. Administered Medications: 17:57 Drug: Lasix (furosemide) 20 mg Route: IVP; Site: left antecubital; ld1 17:57 Follow up: Response: No adverse reaction ld1 Disposition Summary: 07/20/21 18:56 Discharge Ordered Location: Home cp Problem: an acute exacerbation cp Symptoms: have improved cp Condition: Stable cp Diagnosis - Unspecified combined systolic (congestive) and diastolic (congestive) heart failure cp - Chronic atrial fibrillation cp - Cough cp Followup: cp - With: Private Physician - When: 2 - 3 days - Reason: Recheck today's complaints Discharge Instructions: - Discharge Summary Sheet cp - Heart Failure, Diagnosis cp - Aspirin and Your Heart cp - Cough, Adult cp - Heart Failure Exacerbation cp - Heart Failure Medicines cp - Heart Failure Eating Plan cp Forms: - Medication Reconciliation Form cp - Thank You Letter cp - Antibiotic Education cp - Prescription Opioid Use cp Signatures: Dispatcher [employer] EDMS Tha Rendon PA PA cp Racquel Isbell, RN RN ld1 Corrections: (The following items were deleted from the chart) 16:17 15:42 Cardiac monitoring ordered. cp iw
--- NOTE | 2021-07-20 18:57 | ER ---
Nurse's Notes [facility] Name: Andrew Ford Age: 65 yrs Sex: Female : 1955 Arrival Date: 07/20/2021 Time: 15:25 Bed 10 Private MD: Billy Capps Diagnosis: Unspecified combined systolic (congestive) and diastolic (congestive) heart failure;Chronic atrial fibrillation;Cough Presentation: 07/20 15:38 Chief complaint: Patient states: Cough X 5 weeks - comes and goes. Coronavirus screen: ld1 At this time, the client does not indicate any symptoms associated with coronavirus-19. Ebola Screen: No symptoms or risks identified at this time. Initial Sepsis Screen: Does the patient meet any 2 criteria? No. Patient's initial sepsis screen is negative. Does the patient have a suspected source of infection? No. Patient's initial sepsis screen is negative. Risk Assessment: Do you want to hurt yourself or someone else? Patient reports no desire to harm self or others. Onset of symptoms was July 20, 2021. 15:38 Method Of Arrival: Ambulatory ld1 15:38 Acuity: GISSELLE 3 ld1 Triage Assessment: 15:38 General: Appears in no apparent distress. comfortable, Behavior is calm, cooperative, ld1 appropriate for age. Pain: Denies pain. EENT: No signs and/or symptoms were reported regarding the EENT system. Neuro: Level of Consciousness is awake, alert, obeys commands, Oriented to person, place, time, situation. Cardiovascular: Capillary refill < 3 seconds Patient's skin is warm and dry. Respiratory: Airway is patent Respiratory effort is even, unlabored. Respiratory: Reports cough that is non-productive, Denies shortness of breath. GI: Abdomen is round non-distended, obese. : No signs and/or symptoms were reported regarding the genitourinary system. Derm: No signs and/or symptoms reported regarding the dermatologic system. Historical: - Allergies: 15:37 No Known Allergies; ld1 - PMHx: 15:37 Atrial Fib; CHF; Diabetes - NIDDM; Hyperlipidemia; Hypertension; ld1 - PSHx: 15:37 Total abdominal hysterectomy; ld1 - Immunization history:: Adult Immunizations up to date, Client reports receiving the 2nd dose of the Covid vaccine. - Social history:: Smoking status: Patient denies any tobacco usage or history of. Patient/guardian denies using alcohol. Screenin:58 Abuse screen: Denies threats or abuse. Denies injuries from another. Nutritional iw screening: No deficits noted. Tuberculosis screening: No symptoms or risk factors identified. Fall Risk IV access (20 points). Assessment: 16:58 Reassessment: Patient appears in no apparent distress at this time. Patient and/or iw family updated on plan of care and expected duration. Pain level reassessed. Patient is alert, oriented x 3, equal unlabored respirations, skin warm/dry/pink. 18:20 Reassessment: Patient appears in no apparent distress at this time. Patient and/or iw family updated on plan of care and expected duration. Pain level reassessed. Patient is alert, oriented x 3, equal unlabored respirations, skin warm/dry/pink. pt up to bathroom X 2 , daughter at bedside. Vital Signs: 15:38 BP 161 / 93; Pulse 99; Resp 18; Temp 98.8(TE); Pulse Ox 95% on R/A; Weight 113.4 kg; ld1 Height 5 ft. 0 in. (152.40 cm); Pain 0/10; 15:38 Body Mass Index 48.83 (113.40 kg, 152.40 cm) ld1 ED Course: 15:25 Patient arrived in ED. am2 15:25 Billy Capps DO is Private Physician. am2 15:27 Tha Rendon PA is PHCP. cp 15:27 Rodo Stafford MD is Attending Physician. cp 15:37 Racquel Isbell, JERMAN is Primary Nurse. ld1 15:38 Arm band placed on right wrist. ld1 15:39 Triage completed. ld1 15:56 Initial lab(s) drawn, by me, sent to lab. Inserted saline lock: 22 gauge in left iw antecubital area, using aseptic technique. 16:37 XRAY Chest Pa And Lat (2 Views) In Process Unspecified. EDMS 19:04 No provider procedures requiring assistance completed. IV discontinued, intact, iw bleeding controlled, No redness/swelling at site. Pressure dressing applied. 19:05 Patient has correct armband on for positive identification. iw Administered Medications: 17:57 Drug: Lasix (furosemide) 20 mg Route: IVP; Site: left antecubital; ld1 17:57 Follow up: Response: No adverse reaction ld1 Medication: 19:05 VIS not applicable for this client. iw Outcome: 18:56 Discharge ordered by . cp 19:04 Discharged to home ambulatory, with family. iw 19:04 Condition: good 19:04 Discharge instructions given to patient, Instructed on discharge instructions, follow up and referral plans. Demonstrated understanding of instructions, follow-up care. 19:05 Patient left the ED. iw Signatures: Dispatcher [employer] EDMisty Reddy RN RN iw Tha Rendon PA PA cp Moreno, Amanda am2 Racquel Isbell RN RN ld1 Corrections: (The following items were deleted from the chart) 15:40 15:38 Pulse 99bpm; Resp 18bpm; Pulse Ox 95% RA; Temp 98.8F Temporal; 113.4 kg; Height 5 ld1 ft. 0 in.; BMI: 48.8; Pain 0/10; ld1
[2021-07-20 19:13] VITALS: BP 161/93; TEMP 98.8; O2SAT 95
--- NOTE | 2021-07-23 07:55 | EKG ---
Test Date: 2021-07-20 Test Time: 16:11:15 Filling Hand: ABDOULAYE MEASUREMENT RESULTS: Intervals: Rate: 90 MT: QRSD: 78 QT: 374 QTc: 457 Trail: P: MT: QRS: 2 T: 41 INTERPRETIVE STATEMENTS: Atrial fibrillation with premature ventricular or aberrantly conducted complexes Abnormal ECG Compared to ECG 05/27/2018 20:59:55 ST (T wave) deviation no longer present Electronically Signed On 07-23-21 07:50:51 CDT by Carlos Reyes
== END 2021-07-20 19:05 | disposition home or self-care (01) ==
LOC: ER 15:21
DX: I50.40 Unspecified combined systolic (congestive) and diastolic (congestive) heart failure (principal); I48.20 Chronic atrial fibrillation, unspecified; R50.9 Fever, unspecified; I10 Essential (primary) hypertension; E78.5 Hyperlipidemia, unspecified; E11.9 Type 2 diabetes mellitus without complications
CPT/HCPCS: 93005; 85025; 80048; 36415; 83735; 80076; 84484; 83880; 71046; 96374; 99284; J1940